=== PATIENT | male | born 1990 | race Caucasian/White ===

== ENCOUNTER 2018-10-09 11:20 | Day surgery (SDC) | payer OTHER ==
[2018-10-09] MEDS ORDERED: LIDOCAINE 2% INJ-PF (20 MG/ML) 2 ML AMPUL ONE (11:32)
[2018-10-09] MEDS ORDERED: ONDANSETRON HCL INJ/PF 4 MG/2 ML SDV ONE (11:32)
[2018-10-09] MEDS ORDERED: GLYCOPYRROLATE 1 MG/5 ML SYRINGE ONE (11:32)
[2018-10-09] MEDS ORDERED: METOCLOPRAMIDE HCL INJ/PF 10 MG/2 ML SDV ONE (11:32)
[2018-10-09] MEDS ORDERED: DEXAMETHASONE SOD PHOSPHATE INJ 4 MG/1 ML VIAL ONE (11:32)
[2018-10-09] MEDS ORDERED: KETOROLAC TROMETHAMINE 60 MG/2 ML SDV ONE (11:32)
[2018-10-09] MEDS ORDERED: CEPHALEXIN 500 MG CAPSULE PO ONE (12:06)
[2018-10-09] MEDS ORDERED: DIPH/PERTUSS(ACELL)/TETANUS VAC/PF 0.5 ML SYR (>=10YO) IM ONE (12:06)
[2018-10-09] MEDS ORDERED: CEFAZOLIN 1 GM/D5W RTU 1 GM/50 ML RTUPB IV ONE (12:30)
[2018-10-09] MEDS ORDERED: NORMAL SALINE 1000 ML 1,000 ML IV ONE (12:32)
--- NOTE | 2018-10-09 12:37 | PDOC H&P ---
History of Present Illness Patient complains of: Right wrist laceration History of Present Illness: RAYNA GRAVES is a 28 year old male who sustained a wrist laceration while at work. 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 While in the emergency room tendon laceration was noted. Patient denies numbness or tingling. Current pain 11/11. States tetanus is up-to-date. Past Medical History Cardiac Medical History: Denies: Coronary Artery Disease, Myocardial Infarction, Hypertension Pulmonary Medical History: Denies: Asthma, Bronchitis, Chronic Obstructive Pulmonary Disease (COPD), Pneumonia Neurological Medical History: Denies: Seizures Musculoskeltal Medical History: Denies: Arthritis Hematology: Denies: Anemia Past Surgical History Past Surgical History: Reports: Orthopedic Surgery Denies: Pacemaker Social History Smoking Status: Never Smoker Family History Family History: Reviewed & Not Pertinent Parental Family History Reviewed: No Children Family History Reviewed: No Sibling(s) Family History Reviewed.: No Medication/Allergy Home Medications: No Home Medications 08/04/14 Allergies/Adverse Reactions: morphine [Morphine] Allergy (Intermediate, Verified 10/09/18 11:34) Hives Review of Systems Constitutional: ABSENT: chills, fever(s), headache(s), weight gain, weight loss Eyes: ABSENT: visual disturbances Ears: ABSENT: hearing changes Cardiovascular: ABSENT: chest pain, dyspnea on exertion, edema, orthropnea, palpitations Respiratory: ABSENT: cough, hemoptysis Gastrointestinal: ABSENT: abdominal pain, constipation, diarrhea, hematemesis, hematochezia, nausea, vomiting Genitourinary: ABSENT: dysuria, hematuria Integumentary: ABSENT: rash, wounds Neurological: ABSENT: abnormal gait, abnormal speech, confusion, dizziness, focal weakness, syncope Psychiatric: ABSENT: anxiety, depression, homidical ideation, suicidal ideation Endocrine: ABSENT: cold intolerance, heat intolerance, menstrual abnormalities, polydipsia, polyuria Hematologic/Lymphatic: ABSENT: easy bleeding, easy bruising, lymphadenopathy Physical Exam Vital Signs: Temp Pulse Resp BP Pulse Ox 98.2 F 78 18 150/86 H 97 10/09/18 11:39 10/09/18 11:39 10/09/18 11:39 10/09/18 11:39 10/09/18 11:39 Intake & Output 10/08/18 10/09/1819 06:59 06:59 06:59 Weight 95.5 kg General appearance: PRESENT: no acute distress, well-developed, well-nourished Head exam: PRESENT: atraumatic, normocephalic Eye exam: PRESENT: conjunctiva pink, EOMI, PERRLA. ABSENT: scleral icterus Ear exam: PRESENT: normal external ear exam Mouth exam: PRESENT: moist, tongue midline Neck exam: PRESENT: full ROM. ABSENT: carotid bruit, JVD, lymphadenopathy, thyromegaly Cardiovascular exam: PRESENT: RRR. ABSENT: diastolic murmur, rubs, systolic murmur Pulses: PRESENT: normal dorsalis pedis pul, +2 pedal pulses bilateral Vascular exam: PRESENT: normal capillary refill GI/Abdominal exam: PRESENT: normal bowel sounds, soft. ABSENT: distended, guarding, mass, organolmegaly, rebound, tenderness Rectal exam: PRESENT: deferred Musculoskeletal exam: PRESENT: other - Right wrist: Coronal plane laceration 3 cm proximal to the wrist flexion crease. Patient has exposed tendon laceration noted intact palmaris longus however weakness with FCR and defect noted with activation of FCR. Full DIP/PIP joint flexion/extension. Mild weakness with abductor pollicis brevis strengthening of 4/5. Intact sensation palmar cutaneous branch of the median nerve. Cap refill less than 2 seconds. Neurological exam: PRESENT: alert, awake, oriented to person, oriented to place, oriented to time, oriented to situation, CN II-XII grossly intact. ABSENT: motor sensory deficit Psychiatric exam: PRESENT: appropriate affect, normal mood. ABSENT: homicidal ideation, suicidal ideation Skin exam: PRESENT: dry, intact, warm. ABSENT: cyanosis, rash Assessment & Plan - Diagnosis (1) Laceration of wrist, right Qualifiers: Encounter type: initial encounter Qualified Code(s): S61.511A - Laceration without foreign body of right wrist, initial encounter Is this a current diagnosis for this admission?: Yes Plan: Patient sustained a laceration to his right wrist. There is likely involvement of the flexor carpi radialis possible involvement of deeper tendons as well. Given the patient's young age I have recommended proceed with operative intervention which includes exploration of the right wrist with repair of tendon and surgery as indicated. Patient will be discharged home on Keflex postopera tively and a wrist splint. Understands maximal recovery may take up to 6-10 weeks.
[2018-10-09] MEDS ORDERED: ONDANSETRON HCL INJ/PF 4 MG/2 ML SDV IV PRN ×2 (12:38→18:53)
[2018-10-09] MEDS ORDERED: MORPHINE SULFATE 10 MG/ML INJ IV PRN (12:38)
--- NOTE | 2018-10-09 12:38 | ER Document Report ---
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 Patient states a piece of the duct slipped and hit him in the right wrist. Patient has 2 lacerations to his right wrist with possible tendon involvement. TRAVEL OUTSIDE OF THE [place] IN LAST 30 DAYS: No - Related Data Allergies/Adverse Reactions: morphine [Morphine] Allergy (Intermediate, Verified 10/09/18 13:09) Hives Past Medical History - Social History Smoking Status: Never Smoker Family History: Reviewed & Not Pertinent Patient has suicidal ideation: No Patient has homicidal ideation: No Past Surgical History: Reports: Hx Orthopedic Surgery - Immunizations Hx Diphtheria, Pertussis, Tetanus Vaccination: No Review of Systems - Review of Systems Constitutional: No symptoms reported EENT: No symptoms reported Cardiovascular: No symptoms reported Respiratory: No symptoms reported Gastrointestinal: No symptoms reported Genitourinary: No symptoms reported Male Genitourinary: No symptoms reported Musculoskeletal: No symptoms reported Skin: See HPI, Other - laceration to right wrist Hematologic/Lymphatic: No symptoms reported Neurological/Psychological: No symptoms reported -: Yes All other systems reviewed and negative Physical Exam - Vital signs Vitals: Temp Pulse Resp BP Pulse Ox 98.2 F 78 18 150/86 H 97 10/09/18 11:39 10/09/18 11:39 10/09/18 11:39 10/09/18 11:39 10/09/18 11:39 - Notes Notes: Physical Exam: General: Alert, appears well. HEENT: Normocephalic. Atraumatic. PERRL. Extraocular movements intact. Oropharynx clear. Neck: Supple. Non-tender. Respiratory: No respiratory distress. Clear and equal breath sounds bilaterally. Cardiovascular: Regular rate and rhythm. Abdominal: Normal Inspection. Non-tender. No distension. Normal Bowel Sounds. Back: Non-tender. No deformity or step off. Extremities: Moves all four extremities. Upper extremities: Right wrist- Coronal plane laceration. 3cm proximal to the wrist flexion crease. Patient has exposed tendon laceration. Palmaris longus is intact however weakness with FCR with defect noted with activation of FCR. Full DIP/PIP joint flexion/extension. Mild weakness with abductor pollicis brevis strengthening of 4/5. Intact sensation palmar cutaneous branch of the median nerve. Cap refill less than 2 seconds. Lower extremities: Normal inspection. No edema. Normal ROM. Neurological: Normal cognition. AAOx4. Normal speech. Psychological: Normal affect. Normal Mood. Skin: Warm. Dry. Normal color. Course - Vital Signs Vital signs: Temp Pulse Resp BP Pulse Ox 98.2 F 78 18 150/86 H 97 10/09/18 11:39 10/09/18 11:39 10/09/18 11:39 10/09/18 11:39 10/09/18 11:39 - Laboratory Result Diagrams: 10/09/18 12:40 10/09/18 12:40 Laboratory results interpreted by me: 10/09/18 10/09/18 12:40 12:40 MCHC 36.1 H Glucose 113 H Albumin 5.1 H - Consults Dr. Anand Time consulted: 12:04 Consulted provider: will come to ER Discharge - Discharge Clinical Impression: Laceration of right palm Qualifiers: Encounter type: initial encounter Qualified Code(s): S61.411A - Laceration without foreign body of right hand, initial encounter Flexor tendon laceration of right hand with open wound Qualifiers: Encounter type: initial encounter Qualified Code(s): S66.821A - Laceration of other specified muscles, fascia and tendons at wrist and hand level, right hand, initial encounter; S61.401A - Unspecified open wound of right hand, initial encounter Disposition: ADMITTED INPATIENT I personally performed the services described in the documentation, reviewed and edited the documentation which was dictated to the scribe in my presence, and it accurately records my words and actions.
[2018-10-09 12:55] LABS: ABSOLUTE EOSINOPHILS # (AUTO) 0.1 10^3/uL (0.0-0.6); ABSOLUTE LYMPHOCYTES (AUTO) 2.2 10^3/uL (0.5-4.7); ABSOLUTE MONOCYTES (AUTO) 0.6 10^3/uL (0.1-1.4); ABSOLUTE NEUT (AUTO) 3.7 10^3/uL (1.7-8.2); BASOPHILS % (AUTO) 0.6 % (0-2); EOSINOPHILS % (AUTO) 1.3 % (0-6); HEMATOCRIT 46.4 % (37.9-51.0); HEMOGLOBIN 16.8 g/dL (13.5-17.0); LYMPHOCYTES % (AUTO) 33.6 % (13-45); MEAN CORPUSCULAR HGB CONC 36.1 g/dL (32.0-36.0); MEAN CORPUSCULAR VOLUME 88 fl (80-97); MONOCYTES % (AUTO) 8.7 % (3-13); PLATELET COUNT 310 10^3/uL (150-450); RED BLOOD COUNT 5.24 10^6/uL (4.35-5.55); RED CELL DISTRIBUTION WIDTH 12.2 % (11.5-14.0); SEGMENTED NEUTROPHILS % (AUTO) 55.8 % (42-78); TOTAL CELLS COUNTED % (AUTO) 100 %; WHITE BLOOD COUNT 6.6 10^3/uL (4.0-10.5)
[2018-10-09] MEDS ORDERED: FENTANYL CITRATE INJ/PF 100 MCG/2 ML AMPUL IV PRN ×6 (13:08→19:02)
[2018-10-09 13:13] LABS: ALANINE AMINOTRANSFERASE 38 U/L (21-72); ALBUMIN 5.1 g/dL (3.5-5.0); ALKALINE PHOSPHATASE 74 U/L (38-126); ANION GAP 12 (5-19); ASPARTATE AMINO TRANSFERASE 25 U/L (17-59); BILIRUBIN,DIRECT 0.2 mg/dL (0.0-0.4); BILIRUBIN,TOTAL 0.6 mg/dL (0.2-1.3); BLOOD UREA NITROGEN 10 mg/dL (7-20); CALCIUM 9.6 mg/dL (8.4-10.2); CARBON DIOXIDE 29 mmol/L (22-30); CHLORIDE 101 mmol/L (98-107); GLUCOSE 113 mg/dL (75-110); POTASSIUM 4.5 mmol/L (3.6-5.0); SODIUM 141.9 mmol/L (137-145); TOTAL PROTEIN 7.6 g/dL (6.3-8.2)
[2018-10-09 14:47] LABS: AMORPHOUS SEDIMENT,URINE TRACE /HPF; APPEARANCE,URINE CLOUDY; BILIRUBIN,URINE NEGATIVE (NEGATIVE); COLOR,URINE YELLOW; GLUCOSE, URINE NEGATIVE (NEGATIVE); KETONES,URINE NEGATIVE (NEGATIVE); LEUKOCYTE ESTERASE,URINE NEGATIVE (NEGATIVE); NITRITE,URINE NEGATIVE (NEGATIVE); PROTEIN,URINE NEGATIVE (NEGATIVE); URINE SPECIFIC GRAVITY 1.021
[2018-10-09] MEDS ORDERED: BUPIVACAINE HCL 0.5 % INJ/PF 30 ML SDV ONE (17:24)
[2018-10-09] MEDS ORDERED: LIDOCAINE 1% INJ-PF (10 MG/ML) 30 ML SDV ONE (17:24)
[2018-10-09] MEDS ORDERED: KETAMINE HCL INJ 500 MG/10 ML VIAL ONE (17:42)
[2018-10-09] MEDS ORDERED: FENTANYL CITRATE INJ/PF 100 MCG/2 ML AMPUL ONE (17:42)
[2018-10-09] MEDS ORDERED: MIDAZOLAM 2 MG/2 ML INJ ONE (17:43)
[2018-10-09] MEDS ORDERED: EPHEDRINE SULFATE INJ 50 MG/1 ML AMPULE ONE (17:43)
[2018-10-09] MEDS ORDERED: PROPOFOL INJ 200 MG/20 ML VIAL IV ONE ×2 (17:43)
[2018-10-09] MEDS ORDERED: ACETAMINOPHEN 1,000 MG/100 ML RTUPB IV ONE (18:14)
[2018-10-09] MEDS ORDERED: CEFAZOLIN INJ 1 GM VIAL ONE (18:16)
[2018-10-09] MEDS ORDERED: DIPHENHYDRAMINE HCL 50 MG/ML VIAL IV PRN (18:53)
[2018-10-09] MEDS ORDERED: MEPERIDINE HCL/PF INJ 25 MG/1 ML DISP.SYRIN IV PRN (18:53)
[2018-10-09] MEDS ORDERED: PROMETHAZINE HCL INJ 25 MG/1 ML VIAL IV PRN ×2 (18:53)
--- NOTE | 2018-10-09 19:03 | Discharge Summary ---
Discharge Summary (SDC) - Discharge Final Diagnosis: Right wrist flexor carpi radialis laceration Date of Surgery: 10/09/18 Discharge Date: 10/09/18 Condition: Good Treatment or Instructions: Schedule Follow Up w/ Dr. Kashif Anand @ [facility] to be seen in 10-14 days or as scheduled [place]: [place]: [place]: Ice and elevate Keep splint clean/dry/intact. If your fingers become numb please unwrap the Damian wrap but leave the splint in place, if the sensation does not return within 30 minutes please return to the emergency department. May begin finger range of motion attempting to make full fist. Please use ibuprofen (Motrin or Advil) 600-800 mg every 8 hours as needed for pain or fever DO NOT TAKE w/ TORADOL may use once TORADOL complete. You may also use acetaminophen (Tylenol) 1000 mg every 4-6 hours as needed for pain or fever. Please be aware that many medications contain acetaminophen, do not exceed a total of 1000 mg of acetaminophen every 6 hours. If ibuprofen and acetaminophen are not sufficient for your pain you may take the Percocet/Dillard. Please be aware that the Percocet/Dillard does contain Tylenol. Stool softener of choice when on pain medication. USE OF [id number] IBUPROFEN: Ibuprofen (Advil, Nuprin, Medipren, Motrin IB) is a medication for fever and pain control. In addition, it has anti- inflammatory effects which may be beneficial, especially in the treatment of injuries. It's best to take ibuprofen with food. Persons with ulcer disease or allergy to aspirin should notify their physician of this before taking ibuprofen. Ibuprofen can be given every four to six hours, for a total of four doses daily. Age Pain or fever dose Antiinflammatory dose 6-8 yr 200 mg (1 tab) 200 mg (1 tab) 9-11 yr 200 mg (1 tab) 200-400 mg (1-2 tab) 11-14 yr 200-400 mg (1-2 tab) 400 mg (2 tab) 15-adult 400 mg (2 tab) 600 mg (3 tab) ORAL NARCOTIC MEDICATION: You have been given a prescription for pain control. This medication is a narcotic. It's best taken with food, as nausea can result if taken on an empty stomach. Don't operate machinery or drive within six hours of taking this medication. Do not combine this medicine with alcohol, or with any medication which can cause sedation (such as cold tablets or sleeping pills) unless you get permission from the physician. Narcotics tend to cause constipation. If possible, drink plenty of fluids and eat a diet high in fiber and fruits. Please be aware that prescription narcotics also have the potential for abuse. People become addicted to these medications because of the general sense of wellbeing that they induce. This feeling along with a significant reduction in tension, anxiety, and aggression provides a stimulating seductive quality to these drugs. Once your pain is under control, we encourage you to discard your unused narcotics. Prescriptions: Tramadol HCl [Ultram 50 mg Tablet] 50 mg PO Q6HP PRN #30 tablet PRN Reason: Cephalexin Monohydrate [Keflex 500 mg Capsule] 500 mg PO TID #21 capsule Discharge Diet: As Tolerated Respiratory Treatments at Home: Deep Breathing/Coughing Discharge Activity: No Lifting Over 10 Pounds, No Lifting/Push/Pulling Report the Following to Your Physician Immediately: Fever over 101 Degrees, Unusual Bleeding, Redness, Swelling, Warmth, Increased Soreness
--- NOTE | 2018-10-09 19:04 | Operative Report ---
Operative Report DATE OF SURGERY: 10/09/18 PREOPERATIVE DIAGNOSIS: Right forearm laceration POSTOPERATIVE DIAGNOSIS: Right flexor carpi radialis laceration OPERATION: Repair of right flexor carpi radialis zone V SURGEON: CALVIN MOMIN ANESTHESIA: LMAC COMPLICATIONS: None ESTIMATED BLOOD LOSS: Less than 5 cc PROCEDURE: Indication for above procedure: RAYNA GRAVES is a 28 year old male who sustained a wrist laceration while at work. 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 While in the emergency room tendon laceration was noted. Patient denies numbness or tingling. Procedure In Detail: Patient was seen and evaluated in the preoperative holding area. The RIGHT upper extremity was initialized and marked. Patient received 2g of Ancef IV for bacterial prophylaxis. Patient was taken back to the operative room where transferred to the operative table and placed under general anesthesia. Once they were adequately anesthetized a nonsterile tourniquet was placed on the upper extremity. A surgical team debriefing was performed ensuring all instrumentation was available, the surgical procedure was discussed with possible concerns reviewed. 10 cc of 1% lidocaine with epinephrine was injected for local block. The upper extremity was prepped with Betadine and draped in a sterile fashion. A timeout was done identifying correct patient, procedure and extremity everyone in attendance agree with this and verbalized no concerns. The extremity was exsanguinated the tourniquet was inflated to 250 mmHg. Transverse laceration approximately 3 cm distal to the wrist flexion crease was opened and debrided. Any nonviable tissue was excised. No evidence of foreign body. There was intact palmaris longus along with median nerve. No evidence of involvement of the palmar cutaneous branch of the median nerve as well. There was complete laceration of the flexor carpi radialis just distal to the musculotendinous junction. The proximal and distal aspects were then reapproximated with 4-0 fiber loop utilizing a M-Rucker repair technique providing 6 stranded repair. At completion wound was copiously irrigated with 1 L of normal saline. Skin incision was closed with interrupted 4-0 nylon suture. Wound was dressed Xeroform 4 x 4's and patient was placed in a dorsal wrist splint with the wrist approximately 20 degrees of flexion. Tourniquet was deflated. Patient had good peripheral perfusion. Sponge counts, instrument counts, needle counts were correct. Patient was then awoken from anesthesia. Transferred from the operating room table to the operating room stretcher. There was no intraoperative complications patient tolerated procedure well stable to PACU. Postop plan: Patient follow-up the office in 2 weeks at which point we will initiate wrist flexor flexor tendon protocol and patient will be seen by Occupational Therapy f itted for a thermoplastic splint.
[2018-10-09 21:14] VITALS: BP 108/71
== END 2018-10-09 20:45 | disposition home or self-care (01) ==
LOC: ER 11:20 → OROUT 12:37 → UNDOADMOB 12:44 → INTOOBSV 12:44 → EH 12:44 → ER 20:33 → OROUT 20:45 → UNDODISOB 20:45
PROVIDERS: ATTEND Orthopaedic Surgery
DX: S56.221A Laceration of other flexor muscle, fascia and tendon at forearm level, right arm, initial encounter (principal); S61.511A Laceration without foreign body of right wrist, initial encounter; W26.8XXA Contact with other sharp object(s), not elsewhere classified, initial encounter; Y92.69 Other specified industrial and construction area as the place of occurrence of the external cause; Z23 Encounter for immunization; Z88.5 Allergy status to narcotic agent
CPT/HCPCS: 99284; 90471; 36415; 85025; 80053; 81001; 90715; 25260; J2250; J0690 ×2; J1100; J1885; J3010; J3490 ×4; J2765; J2405; J7030; J2704; J0131; 1810